=== PATIENT | male | born 1965 | race Caucasian/White ===

== ENCOUNTER → 2018-01-29 | Outpatient (CLI) | payer BC ==
--- NOTE | 2018-02-01 09:10 | MR ---
EXAMINATION TYPE: MR pelvis wo/w con DATE OF EXAM: 01/29/2018 COMPARISON: None HISTORY: Lower abd/pelvic pain CONTRAST: Standard multiplanar, multisequence MRI of the pelvis was performed per departmental protocol utilizi ng 12 mL intravenous Gadavist gadolinium contrast. FINDINGS: The prostate gland is heterogenous and enlarged with prominent seminal vesicles. The urinar y bladder is unremarkable. There is no adenopathy demonstrated within the pelvis. There is degenerative disc disease at L5-S1 with mild bilateral neural foraminal narrowing as result of at least a broad-based disc bulge, similar findings are seen at L4-L5. There is moderate bilateral femoral acetabular arthropathy as subchondral cysts are seen within the acetabular sourcil bilateral ly with small marginal osteophytes and subchondral cysts of the left femoral head as well as cephalad joint space narrowing bilaterally. There are bilateral at least small partially visualized hydroceles. There is fluid signal, abnormal b one marrow signal and abnormal enhancement at the right greater than left anterior pubic symphysis at the attachment of the abductor longus and abductor brevis as well as the rectus abdominis muscles No dilated large or small bowel is seen. Short segment narrowing of the rectosigmoid junction most li sree relates to colonic spasm. No proximal dilatation. IMPRESSION: 1. Short segment colonic narrowing at the rectosigmoid junction likely relating to colonic spasm rath er than circumferential nonobstructing mucosal neoplasm. Correlate with any recent colonoscopy. 2. Abnormal bone marrow signal, a small amount of adjacent fluid, and abnormal enhancement at the pub ic symphysis (right greater than left) at the attachment of the abductor longus and abductor brevis a s well as the rectus abdominis muscles suggesting strain/stress injury. 3. Bilateral moderate femoral acetabular arthropathy. 4. Partially visualized at least small hydroceles and heterogenous and mildly enlarged prostate gland . 5. Degenerative disc disease at L4-L5 and L5-S1 partially visualized but appearing to create at least mild bilateral neural foraminal narrowing at L5-S1.
== END | disposition home or self-care (01) ==
LOC: RADMRIMAIN 18:06
PROVIDERS: ATTEND Internal Medicine
DX: K56.699 Other intestinal obstruction unspecified as to partial versus complete obstruction (principal); M16.0 Bilateral primary osteoarthritis of hip; N40.0 Benign prostatic hyperplasia without lower urinary tract symptoms; N43.3 Hydrocele, unspecified
CPT/HCPCS: 72197; A9585